=== PATIENT | female | born 1970 | race Caucasian/White ===

== ENCOUNTER 2016-07-08 12:07 | Emergency (ER) | payer MEDICAID ==
[2016-07-08 11:31] VITALS: BP 157/108
[~2016-07-08 12:07] MED LIST: Sodium Chloride 0.9% 1,000 ML IV SCH
--- NOTE | 2016-07-08 14:00 | ER ---
HISTORY OF PRESENT ILLNESS: This 45-year-old lady who came in by ambulance with complaints of bleeding from an incision from recent surgery. She had an open hysterectomy on Saturday in [place], surgeon was Dr. Cooney. The patient has been doing okay, in fact she was seen for a checkup at [place] just a couple of days ago. Steri- Strips were removed. She saw Dr. Grissom at that point and was doing okay. Last evening, she noticed a small amount of blood from the abdominal incision. The patient woke up this morning with a lot of blood saturating her undergarments and running down her legs. She also noticed that her abdomen is much more tender and painful with any movement or palpation. The patient feels very weak today. She has not been coughing. She denies any recent falls or injuries. CURRENT MEDS: Include Lovenox. OBJECTIVE: GENERAL APPEARANCE: The patient is awake, she appears tired. She speaks in a whisper. She states that she feels extremely tired and weak. VITAL SIGNS: Upon arrival , reveal a blood pressure in the 150s over 100s, pulse in the 60s, and O2 sats are good at 100%. GI: Examining the lower abdomen reveals a transverse incision. The left side of the incision appears to be the area where the bleeding has been coming from. The remaining incision is intact. There is no active bleeding at this time externally. The patient has a large bruise just above the incision all the way across her lower abdomen. She has blood that is dried on her legs all the way down to including her feet. Abdomen is tender diffusely with even light touch involving even the epigastric area. Bowel sounds are present and fairly active. LUNGS: Clear. CARDIAC: Heart sounds distinct without murmurs. HEENT: Oral mucous membranes are moist. Tonsils not enlarged or injected. Pharynx not inflamed. DIAGNOSIS: Postop bleeding. LABS: Done today include a CBC showing hemoglobin of 10.9, otherwise unremarkable. PT/INR is normal. CMP is normal. The patient will be typed and screened as well with the results pending. At this point, I did consult with the ER physician in [place] - Dr. Garrison. He suggests we try to get her into [facility] since that is where her surgery was. I therefore contacted [facility] in [place] talking to Dr. Grissom who was the doctor who saw this patient last before the Steri-Strip removal. Dr. Grissom accepted the patient and she will be transferred there by [facility] as soon as possible today. The patient left our facility about an hour later. Last vital signs revealed a blood pressure of 159/90, pulse of 63. The patient remained very sleepy and tired throughout the duration of her stay here in [place]. BECKY/PUSHPA /[id number] MTDD
== END 2016-07-08 13:35 ==
LOC: LB.ED 12:07 → MERGE 12:07 → LB.ED 13:35
DX: N99.820 Postprocedural hemorrhage of a genitourinary system organ or structure following a genitourinary system procedure (principal)
CPT/HCPCS: 36415; 80053; 85025; 85610; 86850; 86900; 86901; 99285; A0425; A0429; J7040

== ENCOUNTER 2017-04-11 19:50 | Emergency (ER) | payer MEDICAID ==
--- NOTE | 2017-04-12 01:19 | ER ---
HISTORY OF PRESENT ILLNESS: A 46-year-old lady here who comes in to have her blood pressure checked. She states that she did not feel real well the last couple of days. She has had a little bit of neck pain. She does not feel like she is running a fever. She has not been coughing. No problems with shortness of breath or wheezing. She thought maybe her blood pressure would be elevated. She tells us that she had history of high blood pressure and was on medication for this, but was taken off it about 15 years ago. She has had her blood pressure checked many times since, and it has always been good. Initial blood pressure reading today is 204/124. OBJECTIVE: GENERAL APPEARANCE: The patient is awake and alert, no respiratory distress. VITAL SIGNS: Reviewed with second blood pressure reading being at 169/101. HEENT: Eyes; pupils equal, round, and reactive to light. EOMs are intact. Oral mucous membranes moist. Tonsils not enlarged or injected. Pharynx not inflamed. NECK: Supple. LUNGS: Clear. CARDIAC: Heart sounds distinct. S1, S2 present. Regular rate. No murmurs. SKIN: Warm and dry. The patient has full and unguarded range of motion of both arms and shoulders. DIAGNOSIS: Hypertension with remote history of the same. TREATMENT PLAN: Lisinopril 20 mg given p.o. The patient is given a script for lisinopril 20 mg daily for 10 days. She is also to start taking a baby aspirin once a day. I do want the patient to follow up in the clinic next week for recheck. Followup should be sooner on an as-needed basis. BECKY/PUSHPA /[id number]
== END 2017-04-11 20:16 | disposition home or self-care (01) ==
LOC: LB.ED 19:50
DX: I10 Essential (primary) hypertension (principal)
CPT/HCPCS: 99283